=== PATIENT | male | born 1955 | race Caucasian/White ===

== ENCOUNTER 2019-09-23 14:09 | Emergency (ER) | payer OTHER ==
[~2019-09-23] VITALS: Ht 175.3 cm; Wt 95.3 kg
[2019-09-23 14:23] VITALS: BP_SYST 138
--- NOTE | 2019-09-23 14:30 | NUR ---
Patient triaged and placed in waiting room. VSS and patient appears in no acute distress at this time. Accompanied by and kids, awaiting available bed, and MD notified of need for MSE.
[2019-09-23 16:38] VITALS: BP_SYST 138
--- NOTE | 2019-09-23 16:38 | NUR ---
Patient does not wish to be seen, states this hospital is out of his network.
== END 2019-09-23 16:38 | disposition left against medical advice (07) ==
LOC: SED 14:09
DX: S01.122A Laceration with foreign body of left eyelid and periocular area, initial encounter (principal); Z53.21 Procedure and treatment not carried out due to patient leaving prior to being seen by health care provider; W10.8XXA Fall (on) (from) other stairs and steps, initial encounter; Y93.01 Activity, walking, marching and hiking; Y92.098 Other place in other non-institutional residence as the place of occurrence of the external cause; Y99.8 Other external cause status

== ENCOUNTER 2022-10-08 17:06 | Inpatient (IN) | payer OTHER ==
[~2022-10-08] VITALS: Ht 175.3 cm; Wt 88.0 kg
[2022-10-08 17:06] VITALS: BP_SYST 109
--- NOTE | 2022-10-08 17:10 | NUR ---
BROUGHT IN BY [facility], PLACED IN BED #6 AND TRIAGED. REPORT GIVEN TO AKANKSHA
--- NOTE | 2022-10-08 17:25 | NUR ---
ER at bedside examining patient.
--- NOTE | 2022-10-08 17:35 | NUR ---
PT RECEIVED, CARE ASSUMED. PT BIB EMS FROM HOME FOR EVALUATION GEN WEAKNESS AND HYPOTENSIVE. PT IS LATHARGIC. PT ABLE TO ANSWER QUESTIONS BUT SLOW. CONNCTED TO TELE MONITOR. MD AT BED SIDE.
--- NOTE | 2022-10-08 18:50 | NUR ---
COLLECTED URINE SAMPLE, NOTED V/S.
[2022-10-08 19:07] LABS: BLOOD, URINE NEGATIVE (NEGATIVE); COLOR,URINE YELLOW (YELLOW); GLUCOSE,URINE 3+ (NEGATIVE); KETONES,URINE 3+ (NEGATIVE); LEUKOCYTE ESTERASE ,URINE NEGATIVE (NEGATIVE); NITRITE, URINE NEGATIVE (NEGATIVE); PH,URINE 5.5 (5.0-8.0); PROTEIN URINE NEGATIVE (NEGATIVE)
[2022-10-08 19:07] LABS: BASOPHILS % (AUTO) 0.2 % (0.0-2.0); HEMATOCRIT 46.1 % (36-54); LYMPHOCYTES # (AUTO) 0.5 K/uL (1.0-5.5); LYMPHOCYTES % (AUTO) 4.2 % (20.5-51.5); MEAN CORPUSCULAR HEMOGLOBIN 28 pg (27-31); MEAN CORPUSCULAR HGB CONC 33 % (32-36); MEAN CORPUSCULAR VOLUME 87 fL (79.0-98.0); MONOCYTES # (AUTO) 0.7 K/uL (0.0-1.0); MONOCYTES % (AUTO) 6.2 % (1.7-9.3); NEUTROPHILS # (AUTO) 9.8 K/uL (1.8-7.7); NEUTROPHILS % (AUTO) 89.4 % (40.0-70.0); PLATELET COUNT (AUTO) 312 K/uL (130-430); RED BLOOD CELL COUNT(AUTO) 5.29 MIL/uL (4.2-6.2); RED CELL DISTRIBUTION WIDTH 18.3 % (9.0-15.0)
[2022-10-08 19:13] LABS: BILIRUBIN,URINE NEGATIVE (NEGATIVE); CLARITY/URINE HAZY (CLEAR)
[2022-10-08] MEDS ORDERED: NACL 0.9% 1,000 ML IV ONE (19:15)
--- NOTE | 2022-10-08 19:18 | NUR ---
REPORT RECEIVED FROM AKANKSHA AKHTAR
[2022-10-08 19:21] LABS: CREATININE 1.55 mg/dL (0.55-1.30)
[2022-10-08 19:22] LABS: BACTERIA,URINE RARE /HPF (None Seen); HYALINE CASTS, URINE 0-10 /LPF (None Seen); RBC,URINE NONE SEEN /HPF (0-3); WBC,URINE NONE SEEN /HPF (0-3)
[2022-10-08 19:23] LABS: MUCUS,URINE 2+ /LPF (None Seen)
--- NOTE | 2022-10-08 19:25 | NUR ---
PT TO CT
[2022-10-08 19:29] LABS: ALBUMIN 2.7 g/dL (3.4-4.8)
--- NOTE | 2022-10-08 19:30 | NUR ---
PT BACK FROM CT
--- NOTE | 2022-10-08 20:24 | NUR ---
PT RESTING NAD, EVEN UNLABORED RESPIRATIONS, VSS, PT STATES HE FEELS WEAK, FAMILY AT BEDSIDE. SAFETY RAILS UP BED AT LOWEST POSITION
--- NOTE | 2022-10-08 20:43 | NUR ---
Specimen collected for COVID-19 antigen and sent to lab.
--- NOTE | 2022-10-08 21:41 | NUR ---
PT RESTING SIDE RAILS UP, NAD, VSS EVEN UNLABORED RESPIRATION PT APPEARS TIRED. CONNECTED TO VS MONITOR.
--- NOTE | 2022-10-08 22:20 | NUR ---
Admit bed requested Patient will be admitted to care of Dr. Cook. Admitted to Med/Surg unit. Diagnosis Juandice and Metastatic CA Inpatient (Yes or No) Yes Observation (Yes or No) No Orientation concerns or request close to nursing station (Yes or No) Yes Covid Status Neg On vent or bipap No Isolation requirements No Needs a sitter No From Home (Yes or if No enter name of facility) Yes Requires Dialysis (Yes or No) No Med Rec Completed (Yes of No) Yes
[2022-10-08] MEDS ORDERED: INSU100V43 SQ (22:23)
[2022-10-08] MEDS ORDERED: EMPA1TAB7 PO (22:23)
[2022-10-08] MEDS ORDERED: DULA1.5P SQ (22:23)
[2022-10-08] MEDS ORDERED: INSU100V9 SQ (22:23)
[2022-10-08] MEDS ORDERED: EMPA10TA PO (22:23)
[2022-10-08] MEDS ORDERED: LISI10TA29 PO (22:23)
--- NOTE | 2022-10-08 23:00 | NUR ---
Patient will be admitted to care of [facility]. Admitted to MEDSURG unit. Will go to room 133A. Belongings list completed. Complete and up to date summary report printed. SBAR report to SAMUEL CATHERINE be given at bedside with opportunity for questions.
--- NOTE | 2022-10-08 23:13 | NUR ---
PT TRANSFERRED TO FLOOR BROUGHT TO ROOM 133 A, AND CHILDREN PRESENT. PT MOVED FROM GURNEY TO BED. NO APPARENT DISTRESS NOTED AT THIS TIME. BELONGINGS NOTED. IV FLUIDS STARTED. PT ORIENTED TO ROOM. CALL LIGHT WITHIN REACH. ALL QUESTIONS ANSWERED.
[2022-10-08 23:50] VITALS: BP_SYST 115
--- NOTE | 2022-10-08 23:50 | NUR ---
FAMILY CONTACT INFO: VELMA FREDY () [phone] KIARA DANIEL (DAUGHTER) [phone] RASTAFARI FREDY (SON) [phone]
[2022-10-09] VITALS (12 sets, daily range): BP systolic 110–129
[2022-10-09] MEDS ORDERED: BENA-6 PO (00:08)
[2022-10-09] MEDS: D5/0.45 NS 1,000 ML IV SCH ×2 (01:32→11:20)
--- NOTE | 2022-10-09 03:04 | NUR ---
PT WOKE UP CONFUSED PT OBSERVED TRYING TO GET OUT OF BED. NURSE REORIENTED PT AND ASSISTED BACK INTO BED. CALL LIGHT WITHIN REACH, NURSE RETAUGHT HOW TO USE. BED IN LOWEST POSITION WITH FALL AND SAFETY PRECAUTIONS IN PLACE.
--- NOTE | 2022-10-09 05:35 | NUR ---
CONSULTATION PAGED/CALLED Reason for Consultation: METASTATIC Person Who was Notified: VOLODYMYR Consulting Physician: ANN Ribbon Lapper Tender Specialty: Ordering Physician: KAMINI
--- NOTE | 2022-10-09 05:38 | NUR ---
CONSULTATION PAGED/CALLED Reason for Consultation: METASTATIC CA Person Who was Notified: VOLODYMYR Consulting Physician: SANKET Mash Tub Cooker Specialty: Ordering Physician: KAMINI
--- NOTE | 2022-10-09 05:41 | NUR ---
CONSULTATION PAGED/CALLED Reason for Consultation: METASTATIC CA Person Who was Notified: Consulting Physician: SHAMIR Educational Coordinator Specialty: Ordering Physician: KAMINI
--- NOTE | 2022-10-09 06:02 | NUR ---
RECIEVED CALL FROM DR JUAREZ OFFICE SAYING DR AREVALO OFFICE IS COVERING TILL OCTOBER 19 CALLED [phone] MUELLER IS CORRECTIONAL OFFICER FOR [facility]
--- NOTE | 2022-10-09 06:20 | NUR ---
ASSISTED PT WITH URINAL
--- NOTE | 2022-10-09 06:45 | NUR ---
CLOSING NOTE PT IS LYING IN BED WITH EYES CLOSED. NO APPARENT DISTRESS NOTED. BED IN LOWEST POSITION WITH FALL AND SAFETY PRECAUTIONS IN PLACE. CALL LIGHT WITHIN REACH. IV FLUIDS RUNNING ORDERED.
--- NOTE | 2022-10-09 08:00 | NUR ---
Initial notes Awake, disoriented. [place] patient to place time and call light use. Denies any pain at this time. No shortness of breath, On room air.tolerating so far. Bed alarm on. will monitor.
--- NOTE | 2022-10-09 09:00 | NUR ---
Consults/oncologist- Spoke to oncologist Dr. Monzon, per MD, they cannot see patient until all the test e.g biopsy is done that confirm diagnosis.
--- NOTE | 2022-10-09 10:00 | NUR ---
HERE, Dr. Christy covering for Dr. Cook, made aware to do med rec
[2022-10-09 10:14] LABS: ALBUMIN 2.7 g/dL (3.4-4.8); CALCIUM 8.8 mg/dL (8.4-11.0); CREATININE 1.58 mg/dL (0.55-1.30); TOTAL BILIRUBIN 3.7 mg/dL (0.0-1.0)
[2022-10-09 10:29] LABS: BASOPHILS % (AUTO) 0.2 % (0.0-2.0); EOSINOPHILS % (AUTO) 0.1 % (0.0-4.0); HEMATOCRIT 47.1 % (36-54); HEMOGLOBIN 15.3 g/dL (14.0-18.0); LYMPHOCYTES # (AUTO) 0.6 K/uL (1.0-5.5); LYMPHOCYTES % (AUTO) 5.4 % (20.5-51.5); MEAN CORPUSCULAR HEMOGLOBIN 28 pg (27-31); MEAN CORPUSCULAR HGB CONC 32 % (32-36); MEAN CORPUSCULAR VOLUME 87 fL (79.0-98.0); MONOCYTES # (AUTO) 0.5 K/uL (0.0-1.0); MONOCYTES % (AUTO) 4.7 % (1.7-9.3); NEUTROPHILS # (AUTO) 9.7 K/uL (1.8-7.7); NEUTROPHILS % (AUTO) 89.6 % (40.0-70.0); PLATELET COUNT (AUTO) 342 K/uL (130-430); RED BLOOD CELL COUNT(AUTO) 5.43 MIL/uL (4.2-6.2); RED CELL DISTRIBUTION WIDTH 18.7 % (9.0-15.0); WHITE BLOOD COUNT (AUTO) 10.9 K/uL (4.8-10.8)
--- NOTE | 2022-10-09 12:00 | NUR ---
HOME MED- REVIEW HOME MEDICATIONS WITH AT BEDSIDE.
--- NOTE | 2022-10-09 12:30 | NUR ---
PAGED PAGED DR. WOODWARD, N : BLOOD SUGAR AND FAMILY WANTS TO SPEAK TO HIM.
[2022-10-09] MEDS ORDERED: D5W 1,000 ML IV PRN (13:00)
[2022-10-09] MEDS ORDERED: GLUCOSE (DEXTROSE) ORAL GEL -Adults PO PRN (13:00)
[2022-10-09] MEDS ORDERED: DEXTROSE 50% JECT 50 ML DISP.SYRIN IVP PRN ×2 (13:00→15:00)
--- NOTE | 2022-10-09 13:30 | NUR ---
NOTES- DR. WOODWARD AT BEDSIDE AND SPEAK WITH FAMILY.
[2022-10-09] MEDS ORDERED: NS 500 ML IV SCH (15:00)
--- NOTE | 2022-10-09 15:20 | NUR ---
CONSULTATION PAGED REASON FOR CONSULTATION:STELLA AND DKA WAS CONSULT CALLED?Y PERSON WHO WAS NOTIFIED:GRACE CONSULTING PHYSICIAN:YOLANDE MOSQUEDA (PHUONG MOSQUEDA ORNAMENTAL IRON WORKER) SENIOR SQL DATABASE DEVELOPER SPECIALTY:NEPHROLOGY SENIOR SQL DATABASE DEVELOPER PHONE NUMBER: [phone] REQUESTING PHYSICIAN:LEILA GOTTI
[2022-10-09 15:31] LABS: BASOPHILS % (AUTO) 0.2 % (0.0-2.0); HEMATOCRIT 42.9 % (36-54); HEMOGLOBIN 14.1 g/dL (14.0-18.0); LYMPHOCYTES # (AUTO) 0.6 K/uL (1.0-5.5); LYMPHOCYTES % (AUTO) 5.9 % (20.5-51.5); MEAN CORPUSCULAR HEMOGLOBIN 29 pg (27-31); MEAN CORPUSCULAR HGB CONC 33 % (32-36); MEAN CORPUSCULAR VOLUME 87 fL (79.0-98.0); MONOCYTES # (AUTO) 0.6 K/uL (0.0-1.0); MONOCYTES % (AUTO) 5.3 % (1.7-9.3); NEUTROPHILS # (AUTO) 9.6 K/uL (1.8-7.7); NEUTROPHILS % (AUTO) 88.6 % (40.0-70.0); PLATELET COUNT (AUTO) 314 K/uL (130-430); RED BLOOD CELL COUNT(AUTO) 4.91 MIL/uL (4.2-6.2); RED CELL DISTRIBUTION WIDTH 18.6 % (9.0-15.0); WHITE BLOOD COUNT (AUTO) 10.9 K/uL (4.8-10.8)
[2022-10-09 15:34] LABS: ACETONE, SERUM SMALL (NEGATIVE)
[2022-10-09 15:43] LABS: ALANINE AMINOTRANSFERASE 43 U/L (12-78); ALBUMIN 2.4 g/dL (3.4-4.8); ANION GAP 28 (5-15); ASPARTATE AMINOTRANSFERASE 38 U/L (10-37); CALCIUM 8.3 mg/dL (8.4-11.0); CHLORIDE 99 mmol/L (98-107); CREATININE 1.58 mg/dL (0.55-1.30); GLUCOSE 310 mg/dL (70-99); PHOSPHORUS 4.3 mg/dL (2.7-4.5); TOTAL BILIRUBIN 3.3 mg/dL (0.0-1.0); UREA NITROGEN, BLOOD 40 mg/dL (8-21)
--- NOTE | 2022-10-09 16:00 | NUR ---
Transfer patient to ICU, responsive. Patient will have insulin drip, NS 500ml running at 250ml as ordered. Report given to GIOVANA Garcia.
[2022-10-09] MEDS: INSULIN REGULAR, HUMAN 100 UNITS in NS 99 ML IV PRN ×2 (18:20)
[2022-10-10] VITALS (24 sets, daily range): BP systolic 101–151
[2022-10-10 00:19] LABS: CALCIUM 8.4 mg/dL (8.4-11.0); CREATININE 1.63 mg/dL (0.55-1.30)
[2022-10-10] MEDS: NACL 0.9% 1,000 ML IV SCH ×5 (02:46→23:13)
[2022-10-10 04:08] LABS: BASOPHILS % (AUTO) 0.2 % (0.0-2.0); HEMATOCRIT 44.2 % (36-54); HEMOGLOBIN 14.2 g/dL (14.0-18.0); LYMPHOCYTES # (AUTO) 0.5 K/uL (1.0-5.5); LYMPHOCYTES % (AUTO) 5.2 % (20.5-51.5); MEAN CORPUSCULAR HEMOGLOBIN 28 pg (27-31); MEAN CORPUSCULAR HGB CONC 32 % (32-36); MEAN CORPUSCULAR VOLUME 88 fL (79.0-98.0); MONOCYTES # (AUTO) 0.5 K/uL (0.0-1.0); MONOCYTES % (AUTO) 5.8 % (1.7-9.3); NEUTROPHILS # (AUTO) 8.3 K/uL (1.8-7.7); NEUTROPHILS % (AUTO) 88.8 % (40.0-70.0); PLATELET COUNT (AUTO) 315 K/uL (130-430); RED BLOOD CELL COUNT(AUTO) 5.03 MIL/uL (4.2-6.2); RED CELL DISTRIBUTION WIDTH 19.2 % (9.0-15.0); WHITE BLOOD COUNT (AUTO) 9.3 K/uL (4.8-10.8)
[2022-10-10 04:30] LABS: ALBUMIN 2.1 g/dL (3.4-4.8); CREATININE 1.58 mg/dL (0.55-1.30); TOTAL BILIRUBIN 2.9 mg/dL (0.0-1.0)
[2022-10-10 07:37] LABS: CALCIUM 8.2 mg/dL (8.4-11.0); CREATININE 1.58 mg/dL (0.55-1.30)
--- NOTE | 2022-10-10 11:08 | NUR ---
Dietitian Recommendations * Ordered [facility] afua LUTHER, MPH, RD Please refer to RD Assessment for further details. Thanks! Addendum: 10/10/22 at [address] Amended: Links added.
[2022-10-10 11:30] LABS: CALCIUM 8.3 mg/dL (8.4-11.0); CREATININE 1.58 mg/dL (0.55-1.30)
--- NOTE | 2022-10-10 16:47 | NUR ---
ST EVALUATION COMPLETED. ST TX NOT INDICATED AT THIS TIME. RECOMMEND PO DIET OF MECHANICAL SOFT AND THIN LIQUID. 1:1 SUPERVISION AND FULL ASPIRATION PRECAUTIONS.
--- NOTE | 2022-10-10 17:24 | NUR ---
1600 Assessment Addendum: 10/10/22 at 1725 by Jsoe Mitchell RN Amended: Links added.
[2022-10-10 18:26] LABS: CALCIUM 8.1 mg/dL (8.4-11.0); CREATININE 1.49 mg/dL (0.55-1.30)
[2022-10-10 18:29] LABS: INR 1.1 (0.80-1.20); PROTHROMBIN TIME 10.9 SECS (9.5-12.5)
--- NOTE | 2022-10-10 19:30 | NUR ---
Assumed care of pt. Pt received on 200 ml NS/hr & 1 unit of insulin/hr. Per previous RN, pt's BS was improving, however 1900 BS spike (213) noted after pt consumed some dinner. Latest CO2 = 15 - RN to continue Q1hr accuchecks per protocol.
--- NOTE | 2022-10-10 21:35 | NUR ---
1999 BS = 200 - Insulin Drip rate changed to 0.5 units/hr - 2099 BS 238 & Insulin increased back to 1 unit/hr - unable to update in EMAR at this time.
[2022-10-10] MEDS: INSULIN REGULAR, HUMAN 100 UNITS in NS 99 ML IV PRN ×2 (22:14)
--- NOTE | 2022-10-10 22:58 | NUR ---
Contacted lab & s/w Taylor re: request to d/c Q4BMP from previous call received from lab - instructed RN will not D/C Q4hr BMP d/t -placed order & pt on insulin drip. Taylor reported that previous seed laboratory assistant already d/c'd the order & requested RN to input a stat BMP - RN to input order.
[2022-10-11] VITALS (22 sets, daily range): BP systolic 115–159
[2022-10-11] MEDS: INSULIN REGULAR, HUMAN 100 UNITS in NS 99 ML IV PRN ×8 (00:20→15:20)
[2022-10-11 00:52] LABS: CALCIUM 7.8 mg/dL (8.4-11.0); CREATININE 1.56 mg/dL (0.55-1.30)
[2022-10-11] MEDS: NACL 0.9% 1,000 ML IV SCH ×5 (05:10→23:45)
[2022-10-11 06:11] LABS: BASOPHILS % (AUTO) 0.4 % (0.0-2.0); EOSINOPHILS % (AUTO) 0.2 % (0.0-4.0); HEMATOCRIT 41.9 % (36-54); HEMOGLOBIN 13.7 g/dL (14.0-18.0); LYMPHOCYTES # (AUTO) 0.7 K/uL (1.0-5.5); LYMPHOCYTES % (AUTO) 8.5 % (20.5-51.5); MEAN CORPUSCULAR HEMOGLOBIN 28 pg (27-31); MEAN CORPUSCULAR HGB CONC 33 % (32-36); MEAN CORPUSCULAR VOLUME 86 fL (79.0-98.0); MONOCYTES # (AUTO) 0.7 K/uL (0.0-1.0); MONOCYTES % (AUTO) 8.4 % (1.7-9.3); NEUTROPHILS # (AUTO) 6.6 K/uL (1.8-7.7); NEUTROPHILS % (AUTO) 82.5 % (40.0-70.0); PLATELET COUNT (AUTO) 257 K/uL (130-430); RED BLOOD CELL COUNT(AUTO) 4.89 MIL/uL (4.2-6.2); RED CELL DISTRIBUTION WIDTH 18.8 % (9.0-15.0)
[2022-10-11 06:21] LABS: INR 1.1 (0.80-1.20); PROTHROMBIN TIME 10.8 SECS (9.5-12.5)
[2022-10-11 06:35] LABS: ALBUMIN 2.1 g/dL (3.4-4.8); CALCIUM 7.8 mg/dL (8.4-11.0); CREATININE 1.52 mg/dL (0.55-1.30); TOTAL BILIRUBIN 2.5 mg/dL (0.0-1.0)
--- NOTE | 2022-10-11 07:30 | NUR ---
Opening Received report on pt. Pt drowsy, arousable, oriented x2, forgetful, in no signs of pain or distress on room air. Pt currently on insulin drip and receiving IV fluids to peripheral IV, intact, patent. Pt able to void via urinal, sometimes incontinent. Pt also noted weak and poor appetite. Pending liver biopsy with radiology.
[2022-10-11 08:06] LABS: CALCIUM 7.8 mg/dL (8.4-11.0); CREATININE 1.59 mg/dL (0.55-1.30)
--- NOTE | 2022-10-11 08:17 | NUR ---
Witnessed insulin drip increased to 1u/hr infusing on a pump.
--- NOTE | 2022-10-11 08:19 | NUR ---
Pt's family at bedside requesting to speak with GI doctor. Informed outpatient GI to notify Dr. Olivares to speak with family.
[2022-10-11 08:42] LABS: TOTAL IRON BIND. CAPACITY 168 ug/dL (250-450)
--- NOTE | 2022-10-11 09:27 | NUR ---
CONSULT PAGED DR LAUREANO FOR PANCREATIC CA WITH METS
--- NOTE | 2022-10-11 09:35 | NUR ---
Dr. Olivares at bedside with pt and family discussing pt's condition, plan of care, and informed regarding findings from CT scan.
--- NOTE | 2022-10-11 09:50 | NUR ---
Dr. Neel Kay, radiologist, at bedside discussing procedure with pt's , Peyton, and daughter, Stephany. Consent signed and witnessed by RN.
[2022-10-11] MEDS: LACTULOSE 20 GM/30 ML UDC PO ONE ×2 (11:15→18:24)
[2022-10-11 11:33] LABS: CALCIUM 7.7 mg/dL (8.4-11.0); CREATININE 1.48 mg/dL (0.55-1.30)
[2022-10-11 17:15] LABS: CALCIUM 7.7 mg/dL (8.4-11.0); CREATININE 1.45 mg/dL (0.55-1.30)
[2022-10-11] MEDS: INSULIN REGULAR, HUMAN 100 UNITS/ML, 3 ML VIAL (humuLIN R) SUBCUT PRN ×2 (18:23→23:47)
--- NOTE | 2022-10-11 18:45 | NUR ---
Closing Pt in no signs of distress on room air. Pt refused most of dinner tray d/t decreased appetite but did drink glucerna. Family at bedside, informed regarding procedure scheduled tomorrow [address] Nevaeh Kay. Endorsed plan of care to RN.
[2022-10-11 20:14] LABS: CALCIUM 7.7 mg/dL (8.4-11.0); CREATININE 1.5 mg/dL (0.55-1.30)
[2022-10-11] MEDS: LACTULOSE 20 GM/30 ML UDC PO SCH (20:29)
[2022-10-11 23:56] LABS: CALCIUM 7.7 mg/dL (8.4-11.0); CREATININE 1.42 mg/dL (0.55-1.30)
[2022-10-12] VITALS (17 sets, daily range): BP systolic 119–146
[2022-10-12] MEDS: NACL 0.9% 1,000 ML IV SCH ×5 (03:56→17:45)
[2022-10-12 06:03] LABS: BASOPHILS % (AUTO) 0.4 % (0.0-2.0); EOSINOPHILS % (AUTO) 0.3 % (0.0-4.0); HEMATOCRIT 41.2 % (36-54); HEMOGLOBIN 13.2 g/dL (14.0-18.0); LYMPHOCYTES # (AUTO) 0.6 K/uL (1.0-5.5); LYMPHOCYTES % (AUTO) 9.6 % (20.5-51.5); MEAN CORPUSCULAR HEMOGLOBIN 28 pg (27-31); MEAN CORPUSCULAR HGB CONC 32 % (32-36); MEAN CORPUSCULAR VOLUME 87 fL (79.0-98.0); MONOCYTES # (AUTO) 0.5 K/uL (0.0-1.0); MONOCYTES % (AUTO) 8.3 % (1.7-9.3); NEUTROPHILS # (AUTO) 5.4 K/uL (1.8-7.7); NEUTROPHILS % (AUTO) 81.4 % (40.0-70.0); PLATELET COUNT (AUTO) 202 K/uL (130-430); RED BLOOD CELL COUNT(AUTO) 4.73 MIL/uL (4.2-6.2); RED CELL DISTRIBUTION WIDTH 18.5 % (9.0-15.0); WHITE BLOOD COUNT (AUTO) 6.6 K/uL (4.8-10.8)
[2022-10-12 06:36] LABS: ALBUMIN 1.9 g/dL (3.4-4.8); CALCIUM 7.5 mg/dL (8.4-11.0); CREATININE 1.37 mg/dL (0.55-1.30); TOTAL BILIRUBIN 2.5 mg/dL (0.0-1.0)
--- NOTE | 2022-10-12 07:20 | NUR ---
Received pt from GIOVANA Mendez, pt lying in the bed, on room air, O2 sat well, awake and calm, forgetful, moving all extremities, peripheral pulse palpable, left IV infusing with NS.
[2022-10-12 08:06] LABS: FERRITIN 711 ng/mL (30-400)
[2022-10-12] MEDS: LACTULOSE 20 GM/30 ML UDC PO SCH ×2 (08:30→22:52)
[2022-10-12] MEDS ORDERED: LIDOCAINE 1%, 20 ML MDV 20 ML ONE (09:12)
[2022-10-12] MEDS ORDERED: MIDAZOLAM HCL 5 MG/5 ML VIAL ONE (09:38)
[2022-10-12] MEDS ORDERED: fentaNYL CITRATE/PF 100 MCG/2 ML AMP ONE (09:39)
[2022-10-12] MEDS ORDERED: MIDAZOLAM HCL 5 MG/5 ML VIAL IVP ONE (09:45)
[2022-10-12] MEDS ORDERED: fentaNYL CITRATE/PF 100 MCG/2 ML AMP IVP ONE (09:45)
[2022-10-12] MEDS: INSULIN REGULAR, HUMAN 100 UNITS/ML, 3 ML VIAL (humuLIN R) SUBCUT PRN ×3 (13:04→22:45)
[2022-10-12 13:06] LABS: HEPATITIS A AB, IgM Negative (Negative); HEPATITIS B CORE AB, IgM Negative (Negative); HEPATITIS B SURFACE AG Negative (Negative)
--- NOTE | 2022-10-12 15:36 | NUR ---
Receiving pt; Received report from Sarah Beth from ICU. Patient laying in bed, resting with at his bedside. A/O x 3, with confusion. Danish speaking. Patient Breathing even and unlabored on room air. No pain, no distress, no SOB. Patient is on a mechanical soft diet. Patient has LAC 20g infusing 200cc hr NS. Patient is bed bound. Bed is locked in lowest position. Call light within reach, all needs met, will continue to monitor.
--- NOTE | 2022-10-12 15:40 | NUR ---
discharge pt to Telemetry RM122 in stable condition. Gave report at bedside, pt breathing on room air, AAOx3 but forgetful. Family at bedside. Addendum: 10/12/22 at 1613 by Sangita Ferro RN No belonging at bedside. per , all his belongs were brought home.
--- NOTE | 2022-10-12 18:39 | NUR ---
Closing Notes; Patient laying in bed, resting while watching TV. A/O x 3 with confusion, Pakistani speaking. Patient Breathing even and unlabored on room air. No pain, no distress, no SOB. Patient is on a mechanical soft diet. Patient has LAC 20g with 200cc/hr NS. Patient is bed bound and uses urinal with assistants. Bed is locked in lowest position. Call light within reach, all needs met, will endorse to film processing shift supervisor nurse.
[2022-10-13] VITALS: BP_SYST 121
[2022-10-13 01:06] LABS: AFP, TUMOR MARKER <1.8 ng/mL (0.0-8.4)
[2022-10-13 04:12] VITALS: BP_SYST 128
[2022-10-13 04:17] VITALS: BP_SYST 128
[2022-10-13] MEDS: NACL 0.9% 1,000 ML IV SCH ×2 (04:45→09:15)
[2022-10-13 06:31] LABS: BASOPHILS % (AUTO) 0.2 % (0.0-2.0); EOSINOPHILS % (AUTO) 0.3 % (0.0-4.0); HEMATOCRIT 42.8 % (36-54); HEMOGLOBIN 14.1 g/dL (14.0-18.0); LYMPHOCYTES # (AUTO) 0.5 K/uL (1.0-5.5); MEAN CORPUSCULAR HEMOGLOBIN 28 pg (27-31); MEAN CORPUSCULAR HGB CONC 33 % (32-36); MEAN CORPUSCULAR VOLUME 85 fL (79.0-98.0); MONOCYTES # (AUTO) 0.6 K/uL (0.0-1.0); MONOCYTES % (AUTO) 7.2 % (1.7-9.3); NEUTROPHILS # (AUTO) 7.3 K/uL (1.8-7.7); NEUTROPHILS % (AUTO) 86.3 % (40.0-70.0); PLATELET COUNT (AUTO) 185 K/uL (130-430); RED CELL DISTRIBUTION WIDTH 18.6 % (9.0-15.0); WHITE BLOOD COUNT (AUTO) 8.5 K/uL (4.8-10.8)
[2022-10-13] MEDS: INSULIN REGULAR, HUMAN 100 UNITS/ML, 3 ML VIAL (humuLIN R) SUBCUT PRN ×4 (06:32→18:49)
[2022-10-13 07:30] VITALS: BP_SYST 154
--- NOTE | 2022-10-13 07:30 | NUR ---
Opening Notes; Patient laying in bed, resting while watching TV. A/O x 3 with confusion, Solomon Islander speaking. Patient Breathing even and unlabored on room air. No pain, no distress, no SOB. Patient is on a mechanical soft diet. Patient has LAC 20g with 200cc/hr NS. Patient is bed bound and uses urinal with assistants. Bed is locked in lowest position. Call light within reach, all needs met, will continue to monitor.
--- NOTE | 2022-10-13 08:09 | NUR ---
CLOSING NOTES PT RESTING IN LOW BED WITH SAFETY PRECAUTION IN PLACE
[2022-10-13] MEDS: LACTULOSE 20 GM/30 ML UDC PO SCH ×2 (08:56→21:18)
--- NOTE | 2022-10-13 12:09 | NUR ---
Nutrition F/U RD reviewed pts current EMR including diet hx, physician notes, nursing notes, pertinent labs/meds/procedures, care trends and care activity. Subjective Information RD rounded to pt room and s/w pt. He seemed a bit drowsy but was able to answer basic questions. He said his appetite was ok. He denies any GI symptoms, but does feel a bit nauseous sometimes. He denies any food allergies and was unsure of LBM. Per EMR review: no documented BM; BG levels are still trending high (240/245/184); merlene: 14; abd distended w/ active bowel sounds Current Diet Order/Nutrition Support Mechanical soft, Glucerna BID x 1 day % PO intake Poor avg of 42% x 3 meals Last BM None documented Estimated Energy Expenditure (kcals/day) 5397-8469 kcal (30-35 kcal/kg CBW d/t CA) Estimated Protein Required (g/day) 70-106g (0.8-1.2 g/kg CBW d/t STELLA, CA) Estimated Fluid Required (l/day) 2.6-3.0L (1mL/kcal maintenance) Problem/Etiology/Signs/Symptoms * Altered nutrition-related lab values r/t endocrine dysfunction AEB elevated BG 228, elevated POC B/287 (Initial) Expected Outcomes/Goals PO intake provides >85% estimated nutrient needs, nutrition-related labs trending WNL, improvements in skin integrity, BM q1-3 days Dietitian Recommendations * Ordered [facility] mechanical soft * Continue Glucerna BID Follow up * Moderate risk: f/u in 3-5 days GS, MPH, RD
[2022-10-13 12:10] VITALS: BP_SYST 154
--- NOTE | 2022-10-13 12:10 | NUR ---
Dietitian Recommendations * Ordered [facility] mechanical soft * Continue Glucerna BID GS, MPH, RD Please refer to Nutrition F/U for further details. Thanks! Addendum: 10/13/22 at [address] RN called stating that pt also wants Glucerna w/ lunch meal -- RD input new order via TO/RB for Glucerna BABS.
--- NOTE | 2022-10-13 12:20 | NUR ---
Notes; Patient laying in bed, watching TV. No pain, no distress, no SOB. Patient states that he does have a slight upset stomach from breakfast. Patient is bed bound. Call light within reach, all needs met, will continue to monitor.
--- NOTE | 2022-10-13 12:44 | NUR ---
Wound Evaluation: Wound Consult ordered for Low Travis Score. Patient evaluated for a low Travis score of 14. Patient was awake, alert, oriented and received in a Tomas Bed. Patient needs assistance to turn in bed. Skin is intact, multiple dry scabs noted. Recommend reposition patient side to side every 2 hours with pillow support. Elevate, off-load and float bilateral heels with pillows. Offload pressure areas with pillows for pressure re-distribution. Perform skin care and monitor skin integrity Q shift. Use moisture barrier cream on moisture susceptible areas QID and PRN for soiling. Place patient on a low air-loss mattress.
--- NOTE | 2022-10-13 16:10 | NUR ---
Notes; Patient laying in bed, watching TV. No pain, no distress, no SOB. Patient is bed bound. Call light within reach, all needs met, will continue to monitor.
[2022-10-13 16:33] VITALS: BP_SYST 114
--- NOTE | 2022-10-13 19:10 | NUR ---
Closing Notes; Patient laying in bed, resting while watching TV. A/O x 3 with confusion, Russian speaking. Patient Breathing even and unlabored on room air. No pain, no distress, no SOB. Patient is on a mechanical soft diet. Patient has LAC 20g with 200cc/hr NS. Patient is bed bound and uses urinal with assistants. Bed is locked in lowest position. Call light within reach, all needs met, will endorse to scene shifter nurse.
[2022-10-14] VITALS (9 sets, daily range): BP systolic 117–159
[2022-10-14] MEDS: INSULIN REGULAR, HUMAN 100 UNITS/ML, 3 ML VIAL (humuLIN R) SUBCUT PRN ×4 (06:12→23:57)
--- NOTE | 2022-10-14 07:17 | NUR ---
PT IS RESTING
[2022-10-14] MEDS: LACTULOSE 20 GM/30 ML UDC PO SCH ×2 (09:30→20:53)
--- NOTE | 2022-10-14 11:48 | NUR ---
Patient resting comfortably in bed at this time AOX4 VSS Verbally responsive Able to make needs known Will continue to monitor
[2022-10-14 14:54] LABS: HEPATITIS C VIRUS AB Negative <0.8 s/co (0.0-0.7)
--- NOTE | 2022-10-14 17:06 | NUR ---
Patient resting comfortably in bed at this time AOX3 Patient slightly confused at this time Asking to be DC Notified Dr. John ANDERS Verbally responsive Able to make needs known Will continue to monitor
--- NOTE | 2022-10-14 18:30 | NUR ---
Family bedside Requesting to speak to Dr. Cook Paged Dr. Cook's office Waiting religious education teacher back
--- NOTE | 2022-10-14 19:38 | NUR ---
PT'S IS EXTREMELY UPSET. PER PT'S MD HAS NOT COMMUNICATED WITH HER OR PT REGARDING POSSIBLE PNA AND HAVING A COLLAPSED BARBARA. MD HAS BEEN PAGED X2 DAY SHIFT AND CALLED NOW. WAITING FOR RETURN CALL. RECEIVED PT LYING IN BED, NO DISTRESS NOTED. PT IS LETHARGIC HOWEVER CAN ANSWER QUESTIONS APPROPRIATELY. AAOX3, O2 SAT 97% RA. BARBARA SOUNDS DIMINISHED DEMONSTRATED H9OW TO US THE INCENTIVE SPIROMETER. EDEMA NON PITTING TO LUE AND BLE ELEVATED EXTREMITIES ONTO PILLOWS. ABD DISTENDED AND SOFT. REPOSITIONED PT. SCABS NOTED TO RUE AND LLE
[2022-10-15 01:00] VITALS: BP_SYST 134
[2022-10-15] MEDS: INSULIN REGULAR, HUMAN 100 UNITS/ML, 3 ML VIAL (humuLIN R) SUBCUT PRN ×5 (03:23→20:31)
[2022-10-15 05:50] VITALS: BP_SYST 133
[2022-10-15 07:33] VITALS: BP_SYST 130
--- NOTE | 2022-10-15 07:58 | NUR ---
Report received from child care associate RN for continuity of care. Patient in stable condition. No active distress noted. Vitals stable. Family members at bedside had a lot of questions for . made aware to call family.
[2022-10-15] MEDS: LACTULOSE 20 GM/30 ML UDC PO SCH ×2 (08:39→20:18)
[2022-10-15 09:18] LABS: BASOPHILS % (AUTO) 0.4 % (0.0-2.0); EOSINOPHILS # (AUTO) 0.1 K/uL (0.0-0.4); EOSINOPHILS % (AUTO) 1.4 % (0.0-4.0); HEMATOCRIT 43.5 % (36-54); HEMOGLOBIN 14.5 g/dL (14.0-18.0); LYMPHOCYTES # (AUTO) 0.7 K/uL (1.0-5.5); MEAN CORPUSCULAR HEMOGLOBIN 28 pg (27-31); MEAN CORPUSCULAR HGB CONC 33 % (32-36); MEAN CORPUSCULAR VOLUME 86 fL (79.0-98.0); MONOCYTES # (AUTO) 0.7 K/uL (0.0-1.0); MONOCYTES % (AUTO) 7.5 % (1.7-9.3); NEUTROPHILS # (AUTO) 7.4 K/uL (1.8-7.7); NEUTROPHILS % (AUTO) 82.7 % (40.0-70.0); PLATELET COUNT (AUTO) 175 K/uL (130-430); RED BLOOD CELL COUNT(AUTO) 5.08 MIL/uL (4.2-6.2); RED CELL DISTRIBUTION WIDTH 18.1 % (9.0-15.0); WHITE BLOOD COUNT (AUTO) 8.9 K/uL (4.8-10.8)
[2022-10-15 09:34] LABS: ALBUMIN 1.7 g/dL (3.4-4.8); CREATININE 1.2 mg/dL (0.55-1.30); TOTAL BILIRUBIN 2.4 mg/dL (0.0-1.0)
[2022-10-15] MEDS: BISACODYL 10 MG/SUPPOSITORY RC SCH (11:34)
[2022-10-15 11:44] VITALS: BP_SYST 114
[2022-10-15 16:06] VITALS: BP_SYST 118
--- NOTE | 2022-10-15 19:30 | NUR ---
OPENING NOTE PT LYING IN BED, EYES OPEN. PT'S IS AT BEDSIDE. BREATHING EVEN AND NONLABORED ON RA. NO S/S ACUTE DISTRESS OR PAIN. BED ALARM ON. SAFETY CHECKS IN PLACE. CALL LIGHT IN REACH. CONTINUE TO MONITOR.
[2022-10-15 20:00] VITALS: BP_SYST 112
[2022-10-15] MEDS: guaiFENesin/DEXTROMETHORPHAN 10 ML UDC PO PRN (20:30)
--- NOTE | 2022-10-15 21:30 | NUR ---
ROUNDING NOTE PT COMPLAINED ITCHINESS ON HIS BACK AND ASKED TO SCRATCH HIS BACK. GIVEN BACK SCRATCH FOR COMFORT. SAFETY CHECKS IN PLACE. CALL LIGHT IN REACH.
--- NOTE | 2022-10-15 23:35 | NUR ---
ROUNDING NOTE PT MADE MISTAKE DURING URINATION. CHANGED PAD, LINEN, GOWN, AND BLANKET. BREATHING EVEN AND NONLABORED. SAFETY CHECKS IN PLACE. CONTINUE TO MONITOR
[2022-10-16 04:00] VITALS: BP_SYST 112
[2022-10-16] MEDS: INSULIN REGULAR, HUMAN 100 UNITS/ML, 3 ML VIAL (humuLIN R) SUBCUT PRN ×4 (06:49→20:58)
[2022-10-16 07:19] LABS: CALCIUM 8.3 mg/dL (8.4-11.0); CREATININE 1.18 mg/dL (0.55-1.30)
--- NOTE | 2022-10-16 07:33 | NUR ---
CLOSING NOTE PT LYING IN BED. EYES CLOSED. ALERT & ORIENTATED X4. BREATHING EVEN AND NONLABORED ON RA. NO S/S OF ACUTE DISTRESS OR PAIN. SAFETY CHECKS IN PLACE. CALL LIGHT IN REACH. ENDORSED TO DAY SHIFT NURSE
[2022-10-16 07:35] LABS: BASOPHILS % (AUTO) 0.4 % (0.0-2.0); EOSINOPHILS # (AUTO) 0.1 K/uL (0.0-0.4); EOSINOPHILS % (AUTO) 1.7 % (0.0-4.0); HEMATOCRIT 42.5 % (36-54); HEMOGLOBIN 13.9 g/dL (14.0-18.0); LYMPHOCYTES # (AUTO) 0.6 K/uL (1.0-5.5); LYMPHOCYTES % (AUTO) 7.3 % (20.5-51.5); MEAN CORPUSCULAR HEMOGLOBIN 28 pg (27-31); MEAN CORPUSCULAR HGB CONC 33 % (32-36); MEAN CORPUSCULAR VOLUME 85 fL (79.0-98.0); MONOCYTES # (AUTO) 0.7 K/uL (0.0-1.0); MONOCYTES % (AUTO) 8.2 % (1.7-9.3); NEUTROPHILS # (AUTO) 6.9 K/uL (1.8-7.7); NEUTROPHILS % (AUTO) 82.4 % (40.0-70.0); PLATELET COUNT (AUTO) 201 K/uL (130-430); RED BLOOD CELL COUNT(AUTO) 4.97 MIL/uL (4.2-6.2); RED CELL DISTRIBUTION WIDTH 18.4 % (9.0-15.0); WHITE BLOOD COUNT (AUTO) 8.4 K/uL (4.8-10.8)
[2022-10-16 08:00] VITALS: BP_SYST 130
[2022-10-16] MEDS: LACTULOSE 20 GM/30 ML UDC PO SCH ×2 (09:54→20:48)
[2022-10-16] MEDS: BISACODYL 10 MG/SUPPOSITORY RC SCH (09:55)
[2022-10-16 12:30] VITALS: BP_SYST 124
[2022-10-16 16:27] VITALS: BP_SYST 119
--- NOTE | 2022-10-16 19:30 | NUR ---
OPENING NOTE PT LYING IN BED. EYES CLOSED. ALERT & ORIENTATED X4. BREATHING EVEN AND NONLABORED ON RA. NO S/S OF ACUTE DISTRESS OR PAIN. SAFETY CHECKS IN PLACE. CALL LIGHT IN REACH. CONTINUE TO MONITOR
[2022-10-16 19:50] VITALS: BP_SYST 129
[2022-10-17] VITALS: BP_SYST 124
[2022-10-17 02:50] VITALS: BP_SYST 129
--- NOTE | 2022-10-17 03:30 | NUR ---
ROUNDING NOTE PT LYING IN BED. BREATHING EVEN AND NONLABORED ON RA. PT HAD BM. CLEAN PT'S BOTTOM AND PUT OINTMENT. SAFETY CHECKS IN PLACE. CALL LIGHT IN REACH. CONTINUE TO MONITOR.
[2022-10-17] MEDS: INSULIN REGULAR, HUMAN 100 UNITS/ML, 3 ML VIAL (humuLIN R) SUBCUT PRN ×4 (06:17→20:15)
[2022-10-17 07:22] LABS: BASOPHILS % (AUTO) 0.5 % (0.0-2.0); EOSINOPHILS # (AUTO) 0.2 K/uL (0.0-0.4); EOSINOPHILS % (AUTO) 2.4 % (0.0-4.0); HEMOGLOBIN 13.4 g/dL (14.0-18.0); LYMPHOCYTES # (AUTO) 0.5 K/uL (1.0-5.5); LYMPHOCYTES % (AUTO) 7.3 % (20.5-51.5); MEAN CORPUSCULAR HEMOGLOBIN 28 pg (27-31); MEAN CORPUSCULAR HGB CONC 33 % (32-36); MEAN CORPUSCULAR VOLUME 86 fL (79.0-98.0); MONOCYTES # (AUTO) 0.7 K/uL (0.0-1.0); MONOCYTES % (AUTO) 9.8 % (1.7-9.3); NEUTROPHILS # (AUTO) 5.5 K/uL (1.8-7.7); PLATELET COUNT (AUTO) 209 K/uL (130-430); RED BLOOD CELL COUNT(AUTO) 4.79 MIL/uL (4.2-6.2); RED CELL DISTRIBUTION WIDTH 18.6 % (9.0-15.0); WHITE BLOOD COUNT (AUTO) 6.9 K/uL (4.8-10.8)
[2022-10-17 08:00] VITALS: BP_SYST 122
[2022-10-17 08:24] LABS: ALBUMIN 1.7 g/dL (3.4-4.8); CALCIUM 8.1 mg/dL (8.4-11.0); CREATININE 1.08 mg/dL (0.55-1.30); TOTAL BILIRUBIN 2.4 mg/dL (0.0-1.0)
[2022-10-17] MEDS: BISACODYL 10 MG/SUPPOSITORY RC SCH (09:00)
[2022-10-17] MEDS: LACTULOSE 20 GM/30 ML UDC PO SCH ×2 (09:00→20:09)
[2022-10-17 12:00] VITALS: BP_SYST 112
--- NOTE | 2022-10-17 20:27 | NUR ---
OPENING NOTE PT LYING BED. AT BED SIDE. BREATHING EVEN AND NONLABORED ON RA. NO S/S OF ACUTE DISTRESS. NO PAIN REPORTED. SAFETY CHECKS IN PLACE. CALL LIGHT IN REACH. CONTINUE TO MONITOR
--- NOTE | 2022-10-17 23:40 | NUR ---
ROUNDING NOTE PT ASKED HOLDING URINAL AND TRIED TO URINATE. PT BOT ABLE TO URINATE. PUT ONE PAD UNDER HIS BOTTOM. LET THE PATIENT HAS TIME. WILL COME BACK AND CHECK 30 MINS LATER
[2022-10-18] VITALS (7 sets, daily range): BP systolic 118–131
--- NOTE | 2022-10-18 02:11 | NUR ---
ROUNDING NOTE PT INCONTINENT AND WET HIS BED. CHANGED WHOLE BED LINEN. GIVEN PERINEAL CARE AND PUT NEW PAD UNDER HIS BOTTOM. SCRATCHING HIS BACK FOR RELIEVING ITCHINESS. BED ALARM ON. SAFETY CHECKS IN PLACE. CALL LIGHT IN REACH. CONTINUE TO MONITOR
[2022-10-18] MEDS: INSULIN REGULAR, HUMAN 100 UNITS/ML, 3 ML VIAL (humuLIN R) SUBCUT PRN ×3 (06:05→21:40)
--- NOTE | 2022-10-18 07:09 | NUR ---
CLOSING NOTE PT LYING BED. EYES OPEN. BREATHING EVEN AND NONLABORED ON RA. NO S/S OF ACUTE DISTRESS. NO PAIN REPORTED. SAFETY CHECKS IN PLACE. CALL LIGHT IN REACH. CONTINUE TO MONITOR
[2022-10-18] MEDS: LACTULOSE 20 GM/30 ML UDC PO SCH ×2 (09:00→21:42)
[2022-10-18] MEDS: guaiFENesin/DEXTROMETHORPHAN 10 ML UDC PO PRN (09:48)
[2022-10-19] VITALS (7 sets, daily range): BP systolic 79–125
--- NOTE | 2022-10-19 07:25 | NUR ---
CLOSING NOTES PT RESTING
[2022-10-19] MEDS: LACTULOSE 20 GM/30 ML UDC PO SCH ×2 (09:48→21:34)
[2022-10-19] MEDS: INSULIN REGULAR, HUMAN 100 UNITS/ML, 3 ML VIAL (humuLIN R) SUBCUT PRN ×3 (09:50→19:27)
--- NOTE | 2022-10-19 12:27 | NUR ---
Spoke w/ Peyton [phone]-She will f/u with PCP and Oncology when pt is discharged. Home Health accepted -[facility] , Palliative accepted- [facility] Palliative Rjuk-[phone].
--- NOTE | 2022-10-19 15:37 | NUR ---
Patient was not accepted by [facility] Palliative-the patient and the were informed we will continue to look for accepting Palliative care. was informed [facility] will call tomorrow for a visit. [facility] will deliver FWW and BSC between 4 and 8 PM to the patient's home. The and son will come and pickle processor the patient and bring the FWW for sizing when the FWW is delivered to the home.
--- NOTE | 2022-10-19 21:35 | NUR ---
meds late entry Scheduled meds, Lactulose given. Patient took slow sips and followed med with water. Fngerstick Accucheck, not done due to it was check two hours ago, too soon (result 198 mg/dL and it was covered), when go home will check.
--- NOTE | 2022-10-19 22:15 | NUR ---
Dr. Cook Called and s/w Dr. Cook. Informed patient is unable to stand up, and not able to walk. Family is requesting if transportation can be ordered to take him home. Dr. Cook informed if unable to walk home with home health, he will discharge to SNF. was informed and she said no, first she would like to try to take him home, if not possible then SNF, but insisted she wants to try to take him home. Dr. Cook said hold discharge and will have porter sample case arrange for DME;wheel chair; and to inform family that there is no guarantee. Family is aware of Dr. Cook's request for wheel chair, and informed that she and her son and daughter will make an effort to also get a wheel chair. looked up PT notes and I noticed: "UNABLE TO AMBULATE"
--- NOTE | 2022-10-19 22:30 | NUR ---
Patient resting in bed Removed clothing and shoes which were put on and gave him a hospital gown. Family took home, his clothes and the FWW.
--- NOTE | 2022-10-19 23:38 | NUR ---
Endorse care Endorsed SBAR report to GIOVANA Hanks
--- NOTE | 2022-10-19 23:45 | NUR ---
RECEIVED PT IN BED ATT, AOX4, EVEN AND UNLABORED BREATHING, DENIED SOB, CP, OR ANY PAIN ATT, SALINE LOCK TO LFA INTACT AND PATENT, DRY SCAB ON ARMS AND LEGS, TOLERATING [facility] SOFT DIET, NO COMPLAIN AT THIS TIME, WILL CONTINUE WITH POC
[2022-10-20 01:00] VITALS: BP_SYST 128
[2022-10-20] MEDS: INSULIN REGULAR, HUMAN 100 UNITS/ML, 3 ML VIAL (humuLIN R) SUBCUT PRN ×2 (06:14→12:45)
--- NOTE | 2022-10-20 06:48 | NUR ---
PT IN BED, AOX4, EVEN AND UNLABORED BREATHING, DENIED SOB, CP, OR ANY PAIN ATT, SALINE LOCK TO LFA INTACT AND PATENT, DRY SCAB ON ARMS AND LEGS, TOLERATING MECH SOFT DIET, ON BEDREST, VOIDING VIA URINAL, NO COMPLAINT AT THIS TIME, BS CHECKED AND COVERED PER SLIDING SCALE, SAFETY PREC MAINTAINED, CALL LIGHT WITHIN REACH, WILL ENDORSE TO INCOMING RN
[2022-10-20 08:00] VITALS: BP_SYST 139
[2022-10-20 09:49] VITALS: BP_SYST 106
[2022-10-20] MEDS: LACTULOSE 20 GM/30 ML UDC PO SCH (09:58)
--- NOTE | 2022-10-20 11:44 | NUR ---
Referral was sent to [facility] for wheelchair for patient. I spoke w/ the patient's -she wants to take the patient home. She will explore treatment at [facility], she will speak to a cousin who is an MD and the family will decide their decision for treatment. We are looking for a contracted Palliative care for the patient.
[2022-10-20 11:47] VITALS: BP_SYST 120
--- NOTE | 2022-10-20 13:08 | NUR ---
Nutrition F/U RD reviewed pts current EMR including diet hx, physician notes, nursing notes, pertinent labs/meds/procedures, care trends and care activity. Subjective Information F/u is late d/t per LOS pt was to be DC. 10/19: DC was held bc pt cannot walk and needs wheelchair. RD rounded to pt room and s/w pt. He attests to eating better now; however documented PO intake is still poor. He enjoys the Glucerna drinks and attests to drinking most of them. He c/o of nausea and some constipation. RD suggested prune juice and pt agreeable. Rn said he said given lactulose earlier, and that will definitely help his constipation. RD recd some food preferences and entered in computrition. Per EMR review: BG levels are still trending high (268/237/259); Travis: 15; abd distended, tender w/ hyperactive bowel sounds Current Diet Order/Nutrition Support Standard CHO (60g) Mechanical soft, Glucerna TID x 7 day % PO intake Poor avg of 28% x 9 meals Last BM 10/17 x 1 Estimated Energy Expenditure (kcals/day) 9112-3466 kcal (30-35 kcal/kg CBW d/t CA) Estimated Protein Required (g/day) 70-106g (0.8-1.2 g/kg CBW d/t STELLA, CA) Estimated Fluid Required (l/day) 2.6-3.0L (1mL/kcal maintenance) Problem/Etiology/Signs/Symptoms * Altered nutrition-related lab values r/t endocrine dysfunction AEB elevated BG 228, elevated POC B/287 (ongoing) Expected Outcomes/Goals PO intake provides >85% estimated nutrient needs, nutrition-related labs trending WNL, improvements in skin integrity, BM q1-3 days Dietitian Recommendations * Continue CCHO mechanical soft * Continue Glucerna TID * Consider obtaining Hgba1c value * Send snacks in between meals; RD entered in computrition Follow up * High risk: f/u in 2-3 days GS, MPH, RD
--- NOTE | 2022-10-20 13:12 | NUR ---
Dietitian Recommendations * Continue CCHO mechanical soft * Continue Glucerna TID * Consider obtaining Hgba1c value * Send snacks in between meals; RD entered in computrition GS, MPH, RD Please refer to Nutrition F/U for further details. Thanks!
[2022-10-20 15:34] VITALS: BP_SYST 130
--- NOTE | 2022-10-20 16:23 | NUR ---
Spoke w/ patient's -Peyton. She would like to take the patient home this evening. She has a wheelchair she borrowed and [facility] will deliver a wheelchair to her home tomorrow or Monday. We are continuing to look for contracted Palliative Care for the patient.
--- NOTE | 2022-10-20 16:26 | NUR ---
PT WHEELCHAIR ORDER PLACED AND APPROVED FROM [employer] ([facility] [place] 1-2 BUSINESS DAYS TO BE DELIVERED. P#[phone] Addendum: 10/20/22 at 1631 by Yanet Gonzalez DP WHEELCHAIR WILL BE DELIVERED TO THE PT ADDRESS: [id number] [place] [id number]
--- NOTE | 2022-10-20 16:31 | NUR ---
PHYSICAL THERAPY CO-SIGN The Physical Therapy Progress Notes documented by Peanut Separator have been reviewed. Reviewed/Co-Signed by: Jose Alejandro Alicia Documentation Done by:CECELIA SAHA Addendum: 10/20/22 at 1631 by Jose Alejandro Alicia PT Amended: Links added.
[2022-10-20 19:46] VITALS: BP_SYST 119
--- NOTE | 2022-10-20 20:22 | NUR ---
PATIENT WAS GOING TO REMAIN AFTER SPEAKING WITH ONCOLOGIST FOR PLACEMENT OF MEDIPORT. AND PATIENT NOW WANT TO THINK AND PROCESS SITUATION. NOW PATIENT GOING HOME . DISCHARGE ORDER IN PLACE. REPORTED TO NIGHT NURSE PATIENT BEING DISCHARGED.
--- NOTE | 2022-10-21 08:06 | NUR ---
PHYSICAL THERAPY CO-SIGN The Physical Therapy Progress Notes documented by Gardening Instructor have been reviewed. Reviewed/Co-Signed by: Jose Alejandro Alicia Documentation Done by:[email or web address] VOGT Addendum: 10/21/22 at 0807 by Jose Alejandro Alicia PT Amended: Links added.
== END 2022-10-20 22:37 | disposition home health service (06) | DRG 435 ==
LOC: SED 17:06 → SMU 21:57 → SIC 10-09 16:12 → STU 10-12 13:07 → SMU 10-19 23:35
PROVIDERS: ADMIT Internal Medicine; ATTEND Internal Medicine
PROC: 0FB23ZX Excision of Left Lobe Liver, Percutaneous Approach, Diagnostic (ICD-10-PCS; principal; 2022-10-12)
DX: C25.9 Malignant neoplasm of pancreas, unspecified (principal); K83.1 Obstruction of bile duct; N17.0 Acute kidney failure with tubular necrosis; C78.7 Secondary malignant neoplasm of liver and intrahepatic bile duct; C78.89 Secondary malignant neoplasm of other digestive organs; K86.9 Disease of pancreas, unspecified; K74.60 Unspecified cirrhosis of liver; E11.65 Type 2 diabetes mellitus with hyperglycemia; L29.9 Pruritus, unspecified; E87.5 Hyperkalemia; Z20.822 Contact with and (suspected) exposure to COVID-19; I10 Essential (primary) hypertension; K59.00 Constipation, unspecified; Z79.4 Long term (current) use of insulin; Z79.899 Other long term (current) drug therapy
CPT/HCPCS: 36415; 36600; 71045; 74181; 76376; 80048; 80053; 80074; 81000; 82009; 82105; 82140; 82378; 82728; 82803-TC; 82962; 83540; 83550; 83605; 83690; 83735; 84100; 85025; 85610-TC; 85730-TC; 86301; 86803; 87040; 87081; 88307; 88313; 88341; 88342; 92610-GN; 93005; 94010; 94668; 96360; 97110-GP; 97112-GP; 97163-GP; 97530-GP; 99285; G0378; J1815; J2001; J2250; J3010